=== PATIENT | male | born 1990 | race Caucasian/White ===

== ENCOUNTER 2022-08-10 02:30 | Emergency (ER) | payer SELFPAY ==
[~2022-08-10] VITALS: Ht 170.2 cm; Wt 104.3 kg
[2022-08-10 02:32] VITALS: BP 120/80
--- NOTE | 2022-08-10 02:37 | NUR ---
PT. WALKED TO BED 09.
[2022-08-10 02:39] VITALS: BP 120/80
--- NOTE | 2022-08-10 02:42 | NUR ---
Patient being evaluated by JONATHON at bedside.
[2022-08-10] MEDS ORDERED: OFLO10SO16 LEFT EAR (02:58)
--- NOTE | 2022-08-10 03:00 | NUR ---
BILATERAL EAR IRRIGATION DONE. PATIENT TOLERATED PROCEDURE WELL. NO COMPLAINTS OF PAIN OR DIZZINESS.
--- NOTE | 2022-08-10 03:20 | NUR ---
Patient discharged with v/s stable. Written and verbal after care instructions given and explained. Patient alert, oriented and verbalized understanding of instructions. Ambulatory with steady gait. All questions addressed prior to discharge. ID band removed. Patient advised to follow up with PMD. Rx of Ofloxacin given. Patient educated on indication of medication including possible reaction and side effects. Opportunity to ask questions provided and answered.
== END 2022-08-10 03:20 | disposition home or self-care (01) ==
LOC: MED 02:30
DX: H60.92 Unspecified otitis externa, left ear (principal); H92.03 Otalgia, bilateral; Z79.899 Other long term (current) drug therapy
CPT/HCPCS: 99283